=== PATIENT | female | born 1980 | race African-American/Black ===

== ENCOUNTER 2016-05-31 14:24 | Emergency (ER) | payer MEDICAID ==
[2014-02-10 22:52] VITALS: BP 156/93
== END 2016-05-31 16:42 | disposition left against medical advice (07) ==
LOC: ER 14:24
DX: O26.891 Other specified pregnancy related conditions, first trimester (principal); R10.9 Unspecified abdominal pain; Z53.21 Procedure and treatment not carried out due to patient leaving prior to being seen by health care provider

== ENCOUNTER 2018-09-12 13:49 | Emergency (ER) | payer OTHER ==
[2014-02-10 22:52] VITALS: BP 156/93
[2018-09-12] MEDS ORDERED: HYDROcodone/APAP 5/325MG 1 TAB TABLET PO ONE (15:00)
[2018-09-12] MEDS ORDERED: CYCLOBENZAPRINE 10 MG TABLET. PO ONE (15:00)
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
[2018-09-13 00:10] LABS: BACTERIA,URINE FEW /HPF (0-FEW); BILIRUBIN,URINE NEGATIVE (NEG); CLARITY,URINE CLEAR; COLOR,URINE YELLOW; NITRITE,URINE NEGATIVE (NEG); PH,URINE 6.5; PROTEIN,URINE NEGATIVE (NEG-TRACE); RBC,URINE RARE /HPF (0-2); SQUAMOUS EPITHELIAL CELL,UR MANY /LPF; UROBILINOGEN,URINE 0.2 mg/dL (0.2 mg/dL); WBC,URINE OCC /HPF (0-4)
== END 2018-09-12 17:30 | disposition home or self-care (01) ==
LOC: ER 13:49
DX: M54.5 Low back pain (principal); M54.2 Cervicalgia; I10 Essential (primary) hypertension
CPT/HCPCS: 72125; 72128; 72131; 81001; 99285-25

== ENCOUNTER 2019-11-01 14:47 | Emergency (ER) | payer OTHER ==
[~2019-11-01] VITALS: Ht 157.5 cm; Wt 61.3 kg
[2019-11-01] MEDS ORDERED: IV NORMAL SALINE 1000ML BAG 1,000 ML IV ONE ×2 (15:15)
[2019-11-01 15:17] LABS: BASO # 0.1 x10^3/uL (0.0-0.2); BASO % 1 % (0-3); EOS # 0.1 x10^3/uL (0.0-0.7); EOS % 1 % (0-3); HEMATOCRIT 35.8 % (36.0-47.0); HEMOGLOBIN 12.4 g/dL (12.0-15.5); LYMPH # 2.8 x10^3/uL (1.0-4.8); LYMPH % 32 % (24-48); MEAN CORPUSCULAR HEMOGLOBIN 32 pg (25-35); MEAN CORPUSCULAR HGB CONC 35 g/dL (31-37); MEAN CORPUSCULAR VOLUME 92 fL (79-100); MONO # 0.4 x10^3/uL (0.0-1.1); MONO % 4 % (0-9); NEUT # 5.4 x10^3/uL (1.8-7.7); NEUT % 62 % (31-73); PLATELET COUNT 183 x10^3/uL (140-400); RED BLOOD COUNT 3.92 x10^6/uL (3.50-5.40); RED CELL DISTRIBUTION WIDTH 14.2 % (11.5-14.5); WHITE BLOOD COUNT 8.7 x10^3/uL (4.0-11.0)
[2019-11-01 15:27] LABS: CALCIUM 8.3 mg/dL (8.5-10.1); CREATININE 0.9 mg/dL (0.6-1.0); GFR 85.2; POTASSIUM 3.3 mmol/L (3.5-5.1)
[2019-11-01 15:33] LABS: ALBUMIN 4.1 g/dL (3.4-5.0); ALBUMIN/GLOBULIN RATIO 1.2 (1.0-1.7); TOTAL BILIRUBIN 0.2 mg/dL (0.2-1.0); TOTAL PROTEIN 7.6 g/dL (6.4-8.2)
--- NOTE | 2019-11-01 15:38 | PHYS DOC ---
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 She says she be jw having shortness of breath, chest pressure, headache, near syncope. She states she did not pass out. She stated that her hands and feet were tingling but she still has slight tingling in her hands. She states her headache has pretty much resolved. She states she no longer has chest pain or pressure and no longer has shortness of breath. She is a smoker. She does have a history of hypertension but does not take medications. Patient currently rates her pain a 4 out of 10 in her head. Review of Systems: Review of Systems: Neurologic: Denies headache, focal weakness or sensory changes. Tingling in hands, headache, near syncope, dizziness [] Heart Score: HEART Score for Chest Pain: HEART Score for Chest Pain Response (Comments) Value History Slighlty/Non-Suspicious 0 ECG Normal 0 Age < 45 0 Risk Factors 1 or 2 Risk Factors 1 Troponin < Normal Limit 0 Total 1 Risk Factors: Risk Factors: DM, Current or recent (<one month) smoker, HTN, HLP, family history of CAD, obesity. Risk Scores: Score 0 - 3: 2.5% MACE over next 6 weeks - Discharge Home Score 4 - 6: 20.3% MACE over next 6 weeks - Admit for Clinical Observation Score 7 - 10: 72.7% MACE over next 6 weeks - Early Invasive Strategies Current Medications: Current Medications Medications (Trade) Dose Ordered Sig/Abdullahi Start Time Stop Time Status Last Admin Dose Admin Sodium Chloride 1,000 ml @ 1,000 mls/hr 1X ONCE 11/01/19 15:15 11/01/19 16:14 11/01/19 15:20 1,000 MLS/HR Allergies: Allergies: Allergies Coded Allergies Type Severity Reaction Last Updated Verified No Known Drug Allergies 10/06/13 No Physical Exam: PE: Constitutional: Well developed, well nourished, no acute distress, non-toxic appearance. [] HENT: Normocephalic, atraumatic, bilateral external ears normal, oropharynx moist, no oral exudates, nose normal. [] Eyes: PERRLA, EOMI, conjunctiva normal, no discharge. [] Neck: Normal range of motion, no tenderness, supple, no stridor. [] Cardiovascular:Heart rate regular rhythm, no murmur [] Lungs & Thorax: Bilateral breath sounds clear to auscultation [] Abdomen: Bowel sounds normal, soft, no tenderness, no masses, no pulsatile masses. [] Skin: Warm, dry, no erythema, no rash. [] Back: No tenderness, no CVA tenderness. [] Extremities: No tenderness, no cyanosis, no clubbing, ROM intact, no edema. [] Neurologic: Alert and oriented X 3, normal motor function, normal sensory function, no focal deficits noted. [] Psychologic: Affect normal, judgement normal, mood normal. Normal physical exam [] Current Patient Data: Labs: Laboratory Tests Test 11/01/19 14:58 White Blood Count 8.7 x10^3/uL (4.0-11.0) Red Blood Count 3.92 x10^6/uL (3.50-5.40) Hemoglobin 12.4 g/dL (12.0-15.5) Hematocrit 35.8 % (36.0-47.0) L Mean Corpuscular Volume 92 fL (79-100) Mean Corpuscular Hemoglobin 32 pg (25-35) Mean Corpuscular Hemoglobin Concent 35 g/dL (31-37) Red Cell Distribution Width 14.2 % (11.5-14.5) Platelet Count 183 x10^3/uL (140-400) Neutrophils (%) (Auto) 62 % (31-73) Lymphocytes (%) (Auto) 32 % (24-48) Monocytes (%) (Auto) 4 % (0-9) Eosinophils (%) (Auto) 1 % (0-3) Basophils (%) (Auto) 1 % (0-3) Neutrophils # (Auto) 5.4 x10^3/uL (1.8-7.7) Lymphocytes # (Auto) 2.8 x10^3/uL (1.0-4.8) Monocytes # (Auto) 0.4 x10^3/uL (0.0-1.1) Eosinophils # (Auto) 0.1 x10^3/uL (0.0-0.7) Basophils # (Auto) 0.1 x10^3/uL (0.0-0.2) Sodium Level 141 mmol/L (136-145) Potassium Level 3.3 mmol/L (3.5-5.1) L Chloride Level 103 mmol/L (98-107) Carbon Dioxide Level 29 mmol/L (21-32) Anion Gap 9 (6-14) Blood Urea Nitrogen 17 mg/dL (7-20) Creatinine 0.9 mg/dL (0.6-1.0) Estimated GFR (Cockcroft-Gault) 85.2 BUN/Creatinine Ratio 19 (6-20) Glucose Level 83 mg/dL (70-99) Calcium Level 8.3 mg/dL (8.5-10.1) L Total Bilirubin Pending Aspartate Amino Transferase (AST) Pending Alanine Aminotransferase (ALT) Pending Alkaline Phosphatase Pending Creatine Kinase Pending Total Protein Pending Albumin Pending Albumin/Globulin Ratio Pending Laboratory Tests 11/01/19 14:58 Laboratory Tests 11/01/19 14:58 Vital Signs: Vital Signs Date Time Temp Pulse Resp B/P (MAP) Pulse Ox O2 Delivery O2 Flow Rate FiO2 11/01/19 14:54 98.2 94 20 150/70 (96) 98 Room Air 98.2 EKG: EKG: EKG read by Dr. Hartley at 1525 is normal sinus rhythm. Radiology/Procedures: Radiology/Procedures: [] Impression: [facility] [address] [place] [address] IMAGING REPORT Signed PATIENT: SARAVANAN LOU SACCOUNT: [id number] : 1980 LOCATION: ER AGE: 38 SEX: F EXAM STATUS: REG ER ORD. PHYSICIAN: OTTO OLIVARES APRN REASON: DIZZINESS, SOA PROCEDURE: PORTABLE CHEST 1V PORTABLE CHEST 1V History: Reason: DIZZINESS, SOA / Spl. Instructions: / History: Comparison: October 06, 2013. Findings: No consolidation or pleural effusion. Portable technique accentuates cardiac size. No pneumothorax. Impression: 1. No acute cardiopulmonary process. Electronically signed by: Connor Izquierdo DO (11/01/2019 3:54 PM) [facility] DICTATED and SIGNED BY: CONNOR IZQUIERDO DO DATE: 11/01/19 1554 [facility] [address] [place] [address] IMAGING REPORT Signed PATIENT: SARAVANAN LOUOUNT: [id number] : 1980 LOCATION: ER AGE: 38 SEX: F EXAM STATUS: REG ER ORD. PHYSICIAN: OTTO OILVARES APRN REASON: DIZZINESS, HEADACHE PROCEDURE: CT HEAD WO CONTRAST EXAM: Head CT without contrast. HISTORY: Dizziness. Headache. TECHNIQUE: Computed tomographic images of the head were obtained without contrast. *One or more of the following individualized dose reduction techniques were utilized for this examination: 1. Automated exposure control. 2. Adjustment of the mA and/or kV according to patient size. 3. Use of iterative reconstruction technique. COMPARISON: 10/06/2013. FINDINGS: There is no acute or subacute extra-axial or intraparenchymal hemorrhage. There is no mass effect or midline shift. There is no hydrocephalus. The conn-white matter differentiation pattern is intact. There is left ethmoid and bilateral maxillary sinus mucosal thickening. The mastoid air cells are clear. There is no suspicious calvarial lesion. IMPRESSION: No acute intracranial findings. Electronically signed by: Myriam Maza MD (11/01/2019 4:15 PM) [facility] DICTATED and SIGNED BY: MYRIAM MAZA MD DATE: 11/01/19 1615 Course & Med Decision Making: Course & Med Decision Making Pertinent Labs and Imaging studies reviewed. (See chart for details) Alert and oriented. Ambulatory with a steady gait. Speaks in full clear sentences. States the tips of her fingers are tingling but she does not have any sensation loss. Moves all extremities equally with equal strengths. Denies dizziness at this time. She states her headache is only very slight. Denies any vision loss, chest pain, shortness of air, abdominal pain, nausea, vomiting, diarrhea, fever. EMS states that she had been sitting out side in the sun for 15 to 20 minutes before she EMS got there and her temp was 100.7. Patient's EKG is normal sinus rhythm and no STEMI. No extremity edema. Skin pink warm and dry. Vital signs are within normal limits. Patient states she is feeling much better. Denies headache or dizziness. Her ETOH level is 57 and did not report any alcohol abuse. Vital signs stable. [] Dragon Disclaimer: Dragon Disclaimer: This electronic medical record was generated, in whole or in part, using a voice recognition dictation system. Departure Departure Impression: Primary Impression: Dehydration Disposition: 01 HOME, SELF-CARE Condition: STABLE Referrals: UNKNOWN PCP NAME (PCP) Patient Instructions: Dehydration, Adult Additional Instructions: Follow up with primary care provider. Drink plenty of fluids. Scripts No Active Prescriptions or Reported Meds Justicifation of Admission Dx: Justifications for Admission: Justification of Admission Dx: N/A OTTO OLIVARES SHOPPER Nov 01, 2019 15:38
--- NOTE | 2019-11-01 15:57 | RAD ---
PORTABLE CHEST 1V History: Reason: DIZZINESS, SOA / Spl. Instructions: / History: Comparison: October 06, 2013. Findings: No consolidation or pleural effusion. Portable technique accentuates cardiac size. No pneumothorax. Impression: 1. No acute cardiopulmonary process. Electronically signed by: Connor Izquierdo DO (11/01/2019 3:54 PM) [facility]
--- NOTE | 2019-11-01 16:18 | RAD ---
EXAM: Head CT without contrast. HISTORY: Dizziness. Headache. TECHNIQUE: Computed tomographic images of the head were obtained without contrast. *One or more of the following individualized dose reduction techniques were utilized for this examination: 1. Automated exposure control. 2. Adjustment of the mA and/or kV according to patient size. 3. Use of iterative reconstruction technique. COMPARISON: 10/06/2013. FINDINGS: There is no acute or subacute extra-axial or intraparenchymal hemorrhage. There is no mass effect or midline shift. There is no hydrocephalus. The conn-white matter differentiation pattern is intact. There is left ethmoid and bilateral maxillary sinus mucosal thickening. The mastoid air cells are clear. There is no suspicious calvarial lesion. IMPRESSION: No acute intracranial findings. Electronically signed by: Myriam Chavez MD (11/01/2019 4:15 PM) [facility]
--- NOTE | 2019-11-01 16:22 | EKG ---
[facility] [address] [place] [address] Test Date: 2019-11-01 Test Time: 15:25:38 Pat Name: SARAVANAN LOU Department: Room: Gender: F [employer]igar P[employer]: : 1980 Requested By: OTTO OLIVARES Order Number: [id number] Reading MD: Measurements Intervals Dyer Rate: 78 P: 65 MD: 170 QRS: 62 QRSD: 80 T: 24 QT: 398 QTc: 457 Interpretive Statements No previous ECG available for comparison
[2019-11-01] MEDS ORDERED: POTASSIUM CHLORIDE 20 MEQ TABLET.ER. PO ONE (16:30)
[2019-11-01] MEDS ORDERED: ONDANSETRON PF 4 MG/2 ML VIAL. IVP ONE (16:30)
[2019-11-01 17:00] VITALS: BP 160/102
[2019-11-01 17:25] LABS: BILIRUBIN,URINE NEGATIVE (NEG); CLARITY,URINE CLEAR; COLOR,URINE YELLOW; NITRITE,URINE NEGATIVE (NEG); PH,URINE 7.5 (<5.0-8.0); PROTEIN,URINE NEGATIVE (NEG-TRACE); UROBILINOGEN,URINE 0.2 mg/dL (0.2 mg/dL)
[2019-11-01 17:31] LABS: BARBITURATES NEG (NEG); BENZODIAZEPINES NEG (NEG); CANNABINOIDS NEG (NEG); COCAINE NEG (NEG); METHADONE NEG (NEG); OPIATES NEG (NEG); PHENCYCLIDINE NEG (NEG)
[2019-11-01 17:32] LABS: AMPHETAMINE/METHAMPHETAMINE NEG (NEG)
[2019-11-01 17:35] LABS: SQUAMOUS EPITHELIAL CELL,UR MANY /LPF
[2019-11-01 17:36] LABS: BACTERIA,URINE MANY /HPF (0-FEW)
[2019-11-01 17:42] LABS: RBC,URINE RARE /HPF (0-2)
== END 2019-11-01 18:07 | disposition home or self-care (01) ==
LOC: ER 14:47
DX: E86.0 Dehydration (principal); R06.02 Shortness of breath; R51 Headache; R55 Syncope and collapse; I10 Essential (primary) hypertension; F17.200 Nicotine dependence, unspecified, uncomplicated; Z98.51 Tubal ligation status; Z98.890 Other specified postprocedural states
CPT/HCPCS: 36415; 70450; 71045; 80053; 80307; 81001; 81025; 82550; 84484; 85025; 87086; 93005; 96361; 96374; 99285; G0480; J2405; J7030